=== PATIENT | female | born 1925 | race Caucasian/White ===

== ENCOUNTER 2016-05-09 11:56 | Emergency (ER) | payer MEDICARE, BC ==
[~2016-05-09] VITALS: Ht 154.9 cm; Wt 62.6 kg
[~2016-05-09 11:56] MED LIST: ASPI81TA2 PO; HYDR12.5 PO; LATA2.5D2 EACHEYE; RAMI10CA PO
[2016-05-09 15:25] VITALS: BP 152/68
== END 2016-05-09 15:26 | disposition home or self-care (01) ==
LOC: ER 11:57
DX: S00.83XA Contusion of other part of head, initial encounter (principal); R51 Headache; I10 Essential (primary) hypertension; Z88.0 Allergy status to penicillin; Z79.82 Long term (current) use of aspirin
CPT/HCPCS: 70450-TC; 72125-TC; 73000-TC; 73030-TC; 73564-TC; A4606; Z7610